=== PATIENT | male | born 1970 | race Asian ===

== ENCOUNTER 2020-10-20 15:18 | Observation (INO) | payer SELFPAY ==
--- NOTE | 2020-10-20 15:54 | ER Document Report ---
ED Medical Screen (RME) - General Stated Complaint: DIZZINESS Time Seen by Provider: 10/20/20 15:25 Information source: Patient Notes: Patient presents with chest pain that started an hour and half prior to arrival. Patient reports some dizziness. Patient describes pain as an achy pressure. Patient reports nausea. Patient did become diaphoretic when episode occurred and does feel lightheaded. Patient denies any cough. Patient reports a history of hypertension, diabetes and CHF. I have greeted and performed a rapid initial assessment of this patient. A comprehensive ED assessment and evaluation of the patient, analysis of test re sults and completion of the medical decision making process will be conducted by additional ED providers. Physical Exam - Respiratory Respiratory status: No respiratory distress - Cardiovascular Rhythm: Regular Heart sounds: S1 appreciated, S2 appreciated Course - Laboratory Results Result Diagrams: 10/20/20 15:50 10/20/20 15:50
--- NOTE | 2020-10-20 15:56 | RADIOLOGY REPORT (SQ) ---
EXAM DESCRIPTION: CHEST SINGLE VIEW IMAGES COMPLETED DATE/TIME: 10/20/2020 3:46 pm REASON FOR STUDY: cp COMPARISON: None. EXAM PARAMETERS: NUMBER OF VIEWS: One view. TECHNIQUE: An AP view of the chest was obtained. RADIATION DOSE: NA LIMITATIONS: None. FINDINGS: LUNGS AND PLEURA: No consolidation, pleural effusion or pneumothorax. MEDIASTINUM AND HILAR STRUCTURES: No mediastinal or hilar contour abnormality. HEART AND VASCULAR STRUCTURES: The cardiac silhouette and pulmonary vasculature are within normal de la cruz its. BONES: No acute findings. HARDWARE: None in the chest. OTHER: No other finding. IMPRESSION: No acute cardiopulmonary process. TECHNICAL DOCUMENTATION: JOB ID: [id number] 2010 [employer]- All Rights Reserved Reading location - IP/workstation name: [email or web address]
[2020-10-20 16:12] LABS: ABSOLUTE BASOPHILS # (AUTO) 0.1 10^3/uL (0.0-0.2); ABSOLUTE EOSINOPHILS # (AUTO) 0.6 10^3/uL (0.0-0.6); ABSOLUTE LYMPHOCYTES (AUTO) 1.6 10^3/uL (0.5-4.7); ABSOLUTE MONOCYTES (AUTO) 0.5 10^3/uL (0.1-1.4); ABSOLUTE NEUT (AUTO) 6.5 10^3/uL (1.7-8.2); EOSINOPHILS % (AUTO) 6.9 % (0-6); HEMATOCRIT 47.7 % (37.9-51.0); HEMOGLOBIN 16.5 g/dL (13.5-17.0); LYMPHOCYTES % (AUTO) 17.6 % (13-45); MEAN CORPUSCULAR HGB CONC 34.6 g/dL (32.0-36.0); MEAN CORPUSCULAR VOLUME 87 fl (80-97); MONOCYTES % (AUTO) 5.3 % (3-13); RED CELL DISTRIBUTION WIDTH 12.8 % (11.5-14.0); SEGMENTED NEUTROPHILS % (AUTO) 69.2 % (42-78); TOTAL CELLS COUNTED % (AUTO) 100 %; WHITE BLOOD COUNT 9.3 10^3/uL (4.0-10.5)
[2020-10-20] MEDS ORDERED: NORMAL SALINE 1000 ML 1,000 ML IV ONE (16:21)
[2020-10-20 16:28] LABS: ALBUMIN 4.7 g/dL (3.5-5.0); ALKALINE PHOSPHATASE 93 U/L (38-126); ANION GAP 12 (5-19); ASPARTATE AMINO TRANSFERASE 24 U/L (17-59); BILIRUBIN,DIRECT 0.3 mg/dL (0.0-0.4); BILIRUBIN,TOTAL 0.8 mg/dL (0.2-1.3); BLOOD UREA NITROGEN 19 mg/dL (7-20); CALCIUM 9.8 mg/dL (8.4-10.2); CARBON DIOXIDE 22 mmol/L (22-30); CHLORIDE 101 mmol/L (98-107); GLUCOSE 312 mg/dL (75-110); POTASSIUM 4.1 mmol/L (3.6-5.0); TOTAL PROTEIN 8.1 g/dL (6.3-8.2)
[2020-10-20 16:32] LABS: PLATELET COUNT 206 10^3/uL (150-450)
[2020-10-20 16:40] LABS: NT PRO BNP 273 pg/mL (<125); TROPONIN I < 0.012 ng/mL
--- NOTE | 2020-10-20 17:44 | ER Document Report ---
Entered by OFELIA PEREZ SCRIBE 10/20/20 2756 Acting as scribe for:AARON MCCLURE MD ED General - General Chief Complaint: Chest Pain Stated Complaint: DIZZINESS Time Seen by Provider: 10/20/20 15:25 Mode of Arrival: Medic Information source: Patient Notes: This 49 year old male patient presents to the emergency department today with complaints of upper chest discomfort that radiates up into his neck, generalized fatigue, diaphoresis, everything looked "ultra ultra bright", and feeling clammy today. He was riding on a golf cart today while his friends played golf when these symptoms began. Patient mentions that in december he was told he had fluid in his lungs and around his heart, and he was sent home on furosemide, carvedilol, and lisinopril. He reports that he had been a smoker but stopped smoking after finding out about CHF. He is not on any blood thinning medications. He does not have pain with breathing. - Related Data Allergies/Adverse Reactions: No Known Allergies Allergy (Verified 10/20/20 16:20) Past Medical History - General Information source: Patient - Social History Smoking Status: Current Some Day Smoker Cigarette use (# per day): Yes Frequency of alcohol use: Occasional Drug Abuse: None Lives with: Family Family History: Reviewed & Not Pertinent - Past Medical History Cardiac Medical History: Reports: Hx Coronary Artery Disease, Hx Hypertension Endocrine Medical History: Reports: Hx Diabetes Mellitus Type 2 Past Surgical History: Reports: Hx Orthopedic Surgery - lumbar discectomy Review of Systems - Review of Systems Constitutional: See HPI, Diaphoresis, Other - fatigue EENT: No symptoms reported Cardiovascular: See HPI, Chest pain Respiratory: No symptoms reported Gastrointestinal: No symptoms reported Genitourinary: No symptoms reported Male Genitourinary: No symptoms reported Musculoskeletal: No symptoms reported Skin: No symptoms reported Hematologic/Lymphatic: No symptoms reported Neurological/Psychological: No symptoms reported -: Yes All other systems reviewed and negative Physical Exam - Vital signs Vitals: Temp Pulse Ox 98.3 F 97 10/20/20 15:35 10/20/20 15:35 - Notes Notes: Physical Exam: General: Alert, appears well. HEENT: Normocephalic. Atraumatic. PERRL. Extraocular movements intact. Oropharynx clear. Neck: Supple. Non-tender. Respiratory: No respiratory distress. Clear and equal breath sounds bilaterally. Cardiovascular: Regular rate and rhythm. Abdominal: Obese. Non-tender. No distension. Normal Bowel Sounds. Back: No gross abnormalities. Extremities: Moves all four extremities. Upper extremities: Normal inspection. Normal ROM. Lower extremities: Normal inspection. No edema. Normal ROM. Neurological: Normal cognition. AAOx4. Normal speech. Psychological: Normal affect. Normal Mood. Skin: Warm. Dry. Normal color. Course - Re-evaluation Re-evalutation: 10/20/20 20:53 The patient's history is very concerning for a myocardial infarction back in December of this year. The EKG shows Q waves in the inferior leads consistent with an inferior wall DC. There are also anterior cues suggesting prior anterior wall DC. The patient's history today is very suggestive of an anginal episode. The CT scan shows a large thickened left ventricle. He will be admitted by the hospitalist service for further evaluation. - Vital Signs Vital signs: Temp Pulse Resp BP Pulse Ox 98.3 F 14 107/84 99 10/20/20 15:35 10/20/20 19:37 10/20/20 19:37 10/20/20 19:37 - Laboratory Results Result Diagrams: 10/20/20 15:50 10/20/20 15:50 Laboratory Results Interpreted: 10/20/20 10/20/20 10/20/20 15:50 15:50 15:50 Eos % (Auto) 6.9 H D-Dimer Sodium 135.4 L Creatinine 1.72 H Est GFR ( Amer) 51 L Est GFR (MDRD) Non-Af 42 L Glucose 312 H Hemoglobin A1c % NT-Pro-B Natriuret Pep 273 H Urine Protein Urine Glucose (UA) 10/20/20 10/20/20 10/20/20 15:50 15:50 17:41 Eos % (Auto) D-Dimer 2.11 H Sodium Creatinine Est GFR ( Amer) Est GFR (MDRD) Non-Af Glucose Hemoglobin A1c % 11.7 H NT-Pro-B Natriuret Pep Urine Protein 30 H Urine Glucose (UA) >=500 H Critical Laboratory Results Reviewed: Yes Attending or Supervising Physician who Reviewed Labs: Dr. Mcclure - Radiology Results Critical Radiology Results Reviewed: No Critical Results - Chest x-ray does not show acute cardiopulmonary abnormalities. CTA chest does not show pulmonary embolus. There is borderline aneurysmal 30 mm a sending aorta without di ssection. There is a large thickened left ventricle. - EKG Interpretation by Me EKG shows normal: Sinus rhythm, [place], Intervals, ST-T Waves. abnormal: QRS Comp lexes - Old inferior infarct, possible old anterior infarct. Rate: Tachycardia - 101 P Waves: LAE When compared to previous EKG there are: Previous EKG unavailable - Consults Dr. Jacome Time consulted: 20:40 Consulted provider: will come to ER Discharge - Discharge Clinical Impression: Chest pain due to coronary artery disease, Poorly controlled diabetes mellitus, Elevated d-dimer, Left ventricular hypertrophy Condition: Stable Disposition: ADMITTED OBSERVATION Admitting Provider: Ay[facility] Unit Admitted: Telemetry I personally performed the services described in the documentation, reviewed and edited the documentation which was dictated to the scribe in my presence, and it accurately records my words and actions.
[2020-10-20 18:03] LABS: APPEARANCE,URINE SLIGHTLY-CLOUDY; BILIRUBIN,URINE NEGATIVE (NEGATIVE); COLOR,URINE YELLOW; GLUCOSE, URINE >=500 mg/dL (NEGATIVE); KETONES,URINE NEGATIVE (NEGATIVE); LEUKOCYTE ESTERASE,URINE NEGATIVE (NEGATIVE); NITRITE,URINE NEGATIVE (NEGATIVE); PROTEIN,URINE 30 mg/dL (NEGATIVE); URINE SPECIFIC GRAVITY 1.011; UROBILINOGEN,URINE NEGATIVE mg/dL (<2.0)
--- NOTE | 2020-10-20 20:35 | RADIOLOGY REPORT (SQ) ---
EXAM DESCRIPTION: CT CHEST ANGIOGRAPHY WITHOUT THEN WITH IV CONTRAST COMPLETED DATE/TME: 10/20/2020 19:59 CLINICAL HISTORY: 49 years, Male, Elevated D-dimer, chest pain COMPARISON: Chest x-ray 10/20/2020 TECHNIQUE: 70 mL Omnipaque 300 contrast. MIP reconstruction. Images stored on PACS. All CT scanners at this facility use dose modulation, iterative reconstruction, and/or weight based dosing when appropriate to reduce radiation dose to as low as reasonably achievable (ALARA). FINDINGS: Normal size 26 mm main pulmonary artery. No evidence for pulmonary embolus. Borderline aneurysmal, 39 mm ascending aorta. No dissection. Nonenlarged left atrium mildly compressed by the ascending aorta.. A large thickened left ventricle. Small mediastinal lymph nodes. No suspicious mediastinal adenopathy. No evidence for pericardial effusion. No acute lung or pleural abnormalities. Limited images of the upper abdomen without acute findings. IMPRESSION: 1. There is for pulmonary embolus. 2. Borderline fatty 9 mm aneurysmal ascending aorta. No dissection. Thickened left ventricle wall. 3. No acute findings. TECHNICAL DOCUMENTATION: Quality ID # 436: Final reports with documentation of one or more dose reduction techniques (e.g., Automated exposure control, adjustment of the mA and/or kV according to patient size, use of iterative reconstruction technique) copyright 2011 [employer]- All Rights Reserved
[2020-10-20] MEDS ORDERED: ASPIRIN 81 MG TABLET, CHEWABLE PO ONE (20:55)
[2020-10-20 21:05] LABS: INTERNATIONAL RATION (INR) 0.83; PROTHROMBIN TIME 11.6 SEC (11.4-15.4)
[2020-10-20] MEDS ORDERED: DEXTROSE 40% GEL 15 GM TUBE PO PRN ×2 (21:56)
[2020-10-20] MEDS ORDERED: GLUCAGON,HUMAN RECOMB 1 MG INJ IM PRN (21:56)
[2020-10-20] MEDS ORDERED: DEXTROSE 50%-WATER 25 GM/50 ML DISP.SYRIN IV PRN ×2 (21:56)
[2020-10-20] MEDS ORDERED: INSULIN GLARGINE,HUM.REC.ANLOG 1,000 UNIT/10 ML VIAL (PYX) SUBCUT ONE (23:26)
[2020-10-20] MEDS: CARVEDILOL 6.25 MG TABLET PO SCH (23:34)
[2020-10-20] MEDS: INSULIN GLARGINE,HUM.REC.ANLOG 1,000 UNIT/10 ML VIAL SUBCUT SCH (23:34)
[2020-10-20] MEDS: INSULIN REG, HUMAN 100 UNIT/ML 3 ML VIAL (PYX) SUBCUT SCH (23:44)
--- NOTE | 2020-10-21 02:36 | PDOC H&P ---
History of Present Illness Admission Date/PCP: 10/20/20 21:17 Patient complains of: Chest pain History of Present Illness: MAY SINGH is a 49 year old male Patient has history of coronary artery disease. He had nuclear medicine cardiac stress test about 2 years ago. 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 Cardiac catheterization was not recommended at that time. He was at the [employer] course with his friends this afternoon. He was mostly riding the golf cart. He started feeling poorly. He started sweating, became lighthea ded, nauseated. He developed chest pressure radiating towards left shoulder. He felt he is going to pass out. The symptoms lasted for almost an hour. Eventually came to the emergency department. His symptoms resolved. The chest pressure was quite intense. He never experienced anything similar. He had some shortness of breath at the same time as well. Eventually the symptoms resolved by itself. Ever since then he is feeling fine. When I arrived to see him he appeared to be comfortable without any distress. Past Medical History Cardiac Medical History: Reports: Coronary Artery Disease, Hypertension Pulmonary Medical History: Denies: None Endocrine Medical History: Reports: Diabetes Mellitus Type 2 Renal/ Medical History: Reports: None Malignancy Medical History: Reports: None GI Medical History: Reports: None Musculoskeltal Medical History: Reports: None Skin Medical History: Reports: None Psychiatric Medical History: Denies: Depression Infectious Medical History: Reports: None Past Surgical History Past Surgical History: Reports: Orthopedic Surgery - lumbar discectomy Social History Lives with: Family Smoking Status: Former Smoker Frequency of Alcohol Use: Occasional Drugs: None Hx Prescription Drug Abuse: No Family History Family History: Other - He does not know his family history, he is adopted. Parental Family History Reviewed: No - Adopted Children Family History Reviewed: No Sibling(s) Family History Reviewed.: No Medication/Allergy Home Medications: Lisinopril [Prinivil 10 mg Tablet] 10 mg PO DAILY 10/20/20 Allergies/Adverse Reactions: No Known Allergies Allergy (Verified 10/20/20 16:20) Review of Systems Constitutional: PRESENT: as per HPI. ABSENT: chills, fever(s), headache(s), weight gain, weight loss Eyes: ABSENT: visual disturbances Ears: ABSENT: hearing changes Cardiovascular: PRESENT: chest pain, dyspnea on exertion Respiratory: ABSENT: cough, hemoptysis Gastrointestinal: ABSENT: abdominal pain, constipation, diarrhea, hematemesis, hematochezia, nausea, vomiting Genitourinary: ABSENT: dysuria, hematuria Musculoskeletal: ABSENT: joint swelling Integumentary: ABSENT: rash, wounds Neurological: ABSENT: abnormal gait, abnormal speech, confusion, dizziness, focal weakness, syncope Physical Exam Vital Signs: Temp Pulse Resp BP Pulse Ox 98.2 F 103 H 16 106/72 96 10/20/20 23:21 10/20/20 23:21 10/20/20 23:21 10/20/20 23:21 10/20/20 23:21 Intake & Output 10/19/20 10/20/20 10/21/20 06:59 06:59 06:59 Intake Total 1000 Balance 1000 Weight 106.7 kg General appearance: PRESENT: no acute distress Head exam: PRESENT: atraumatic Eye exam: PRESENT: conjunctiva pink, EOMI, PERRLA. ABSENT: scleral icterus Ear exam: PRESENT: normal external ear exam Neck exam: ABSENT: carotid bruit, JVD, lymphadenopathy, thyromegaly Respiratory exam: PRESENT: clear to auscultation luis. ABSENT: rales, rhonchi, wheezes Cardiovascular exam: PRESENT: RRR. ABSENT: diastolic murmur, rubs, systolic murmur Pulses: PRESENT: normal dorsalis pedis pul Vascular exam: PRESENT: normal capillary refill GI/Abdominal exam: PRESENT: normal bowel sounds, soft. ABSENT: distended, guarding, mass, organolmegaly, rebound, tenderness Extremities exam: PRESENT: full ROM. ABSENT: calf tenderness, clubbing, pedal edema Neurological exam: PRESENT: alert, awake, oriented to person, oriented to place, oriented to time, oriented to situation, CN II-XII grossly intact. ABSENT: motor sensory deficit Skin exam: PRESENT: dry, intact, warm. ABSENT: cyanosis, rash Results Laboratory Results: 10/20/20 15:50 10/20/20 15:50 10/20/20 10/20/20 10/20/20 15:50 15:50 17:41 WBC 9.3 RBC 5.50 Hgb 16.5 Hct 47.7 MCV 87 MCH 30.0 MCHC 34.6 RDW 12.8 Plt Count 206 Seg Neutrophils % 69.2 Sodium 135.4 L Potassium 4.1 Chloride 101 Carbon Dioxide 22 Anion Gap 12 BUN 19 Creatinine 1.72 H Est GFR ( Amer) 51 L Glucose 312 H Calcium 9.8 Magnesium 2.1 Total Bilirubin 0.8 AST 24 Alkaline Phosphatase 93 Total Protein 8.1 Albumin 4.7 Urine Color YELLOW Urine Appearance SLIGHTLY-CLOUDY Urine pH 5.0 Ur Specific [place] 1.011 Urine Protein 30 H Urine Glucose (UA) >=500 H Urine Ketones NEGATIVE Urine Blood NEGATIVE Urine Nitrite NEGATIVE Ur Leukocyte Esterase NEGATIVE Urine WBC (Auto) 1 Urine RBC (Auto) 0 10/20/20 10/20/20 10/20/20 15:50 15:50 18:01 Creatine Kinase 101 Troponin I < 0.012 < 0.012 NT-Pro-B Natriuret Pep 273 H 10/20/20 23:47 Creatine Kinase Troponin I < 0.012 NT-Pro-B Natriuret Pep Impressions: Chest X-Ray 10/20/20 15:35 IMPRESSION: No acute cardiopulmonary process. Chest/Abdomen CTA 10/20/20 18:53 IMPRESSION: 1. There is for pulmonary embolus. 2. Borderline fatty 9 mm aneurysmal ascending aorta. No dissection. Thickened left ventricle wall. 3. No acute findings. TECHNICAL DOCUMENTATION: Quality ID # 436: Final reports with documentation of one or more dose reduction techniques (e.g., Automated exposure control, adjustment of the mA and/or kV according to patient size, use of iterative reconstruction technique) copyright 2011 [employer]- All Rights Reserved Assessment and Plan - Diagnosis (1) Chest pain due to coronary artery disease Is this a current diagnosis for this admission?: Yes Plan: No sign of ongoing cardiac ischemia. The chest painchest tightness was most likely angina. Other etiology cannot be entirely excluded. He is stable. He is going to be on playground monitor. Repeat cardiac enzymes. Continue daily aspirin. Fasting lipid panel, start statin drug in case LDL is greater than 70. Continue beta-andrew. Cardiology consultation was requested. Echocardiogram. (2) Hypertension Qualifiers: Hypertension type: essential hypertension Qualified Code(s): I10 - Essential (primary) hypertension Is this a current diagnosis for this admission?: Yes Plan: He appears to be somewhat volume depleted. He received fluid bolus in the emergency department. I am going to hold lisinopril and furosemide. It is somewhat unclear why is he taking furosemide. (3) Diabetes Qualifiers: Diabetes mellitus type: type 2 Diabetes mellitus longitudinal float operator insulin use: without longitudinal float operator use Diabetes mellitus complication status: with hyperglycemia Qualified Code(s): E11.65 - Type 2 diabetes mellitus with hyperglycemia Is this a current diagnosis for this admission?: Yes Plan: He used to be on Metformin which was discontinued several months ago. He has moderate hyperglycemia. I started him on Lantus insulin and correction dose insulin. His hemoglobin A1c is 11.7. I am not quite sure his diabetes can be controlled with oral agent alone. Monitor blood sugar and prior to discharge we will determine what will be the best approach for his diabetes. - Plan Summary Summary: The patient with previous history of coronary artery disease presented with anginal equivalent symptoms. He has no sign of ongoing cardiac ischemia and he is comfortable now. He was placed in observation for cardiac evaluation. He has uncontrolled type 2 diabetes. - Time Time Spent with patient: 35 or more minutes Medications reviewed and adjusted accordingly: Yes Anticipated Discharge Disposition: Home, Self Care Anticipated Discharge Timeframe: within 24 hours
[2020-10-21 06:36] LABS: ABSOLUTE BASOPHILS # (AUTO) 0.1 10^3/uL (0.0-0.2); ABSOLUTE EOSINOPHILS # (AUTO) 0.7 10^3/uL (0.0-0.6); ABSOLUTE LYMPHOCYTES (AUTO) 1.4 10^3/uL (0.5-4.7); ABSOLUTE MONOCYTES (AUTO) 0.4 10^3/uL (0.1-1.4); ABSOLUTE NEUT (AUTO) 3.6 10^3/uL (1.7-8.2); BASOPHILS % (AUTO) 1.2 % (0-2); EOSINOPHILS % (AUTO) 10.8 % (0-6); HEMATOCRIT 40.9 % (37.9-51.0); LYMPHOCYTES % (AUTO) 22.8 % (13-45); MEAN CORPUSCULAR HEMOGLOBIN 29.5 pg (27.0-33.4); MEAN CORPUSCULAR HGB CONC 33.7 g/dL (32.0-36.0); MEAN CORPUSCULAR VOLUME 88 fl (80-97); MONOCYTES % (AUTO) 6.6 % (3-13); PLATELET COUNT 244 10^3/uL (150-450); RED BLOOD COUNT 4.67 10^6/uL (4.35-5.55); RED CELL DISTRIBUTION WIDTH 12.6 % (11.5-14.0); SEGMENTED NEUTROPHILS % (AUTO) 58.6 % (42-78); TOTAL CELLS COUNTED % (AUTO) 100 %; WHITE BLOOD COUNT 6.2 10^3/uL (4.0-10.5)
[2020-10-21 06:43] LABS: HEMOGLOBIN 13.8 g/dL (13.5-17.0)
[2020-10-21 06:57] LABS: ALBUMIN 3.5 g/dL (3.5-5.0); ALKALINE PHOSPHATASE 77 U/L (38-126); ANION GAP 6 (5-19); ASPARTATE AMINO TRANSFERASE 20 U/L (17-59); BILIRUBIN,DIRECT 0.2 mg/dL (0.0-0.4); BILIRUBIN,TOTAL 0.5 mg/dL (0.2-1.3); BLOOD UREA NITROGEN 21 mg/dL (7-20); CALCIUM 9.4 mg/dL (8.4-10.2); CARBON DIOXIDE 24 mmol/L (22-30); CHLORIDE 105 mmol/L (98-107); CHOLESTEROL 203.63 mg/dL (0-200); GLUCOSE 259 mg/dL (75-110); POTASSIUM 4.3 mmol/L (3.6-5.0); TOTAL PROTEIN 6.1 g/dL (6.3-8.2); TRIGLYCERIDES 201 mg/dL (<150)
[2020-10-21 07:08] LABS: DIRECT LDL 157 mg/dL (<100)
[2020-10-21 07:11] LABS: VLDL CHOLESTEROL 40.2 mg/dL (10-31)
--- NOTE | 2020-10-21 08:39 | PDOC CONSULTATION ---
Consultation Consult Date: 10/21/20 Attending physician:: AJITH ACKERMAN Provider Consulted: ARELIS BLAKE Consult reason:: Chest pain History of Present Illness Admission Date/PCP: 10/20/20 21:17 History of Present Illness: MAY SINGH is a 49 year old male with history of hypertension, hyperlipidemia, type 2 diabetes, coronary artery disease status post MO based on the results of a nuclear stress test done approximately 3 years ago at [facility], heart failure diagnosed by his primary care provider in December 2019 when he was found to have pulmonary edema on chest x- ray, ex-smoker who quit 6 months ago and unknown family history of premature coronary artery disease as he is adopted who is consulted to our service for evaluation of chest pain. After the patient was told the results of his nuclear stress test approximately 3 years ago he was unable to follow-up with cardiology with any further work-up and has not been seen by any hot cell technician not even after his episode of heart failure in December 2019 due to reasons beyond his control. He had been doing well until yesterday when, while talking to friends [place] the [place], he developed a very severe substernal chest pain that he described as a tightness, without radiation, lasting for at least 2 to 3 hours, associated with shortness of breath, diaphoresis, nausea and lightheadedness as well as palpitations but no syncope or presyncope. Since admission he has r emained hemodynamically stable and without recurrence of chest pain. He ruled out for MO with 3 sets of cardiac troponins that are negative. He has no new complaints this morning and feels well. Physical exam on 10/21/2020: GENERAL: Pleasant and conversational. Oriented x3 with normal mood. Not in acute distress. Well groomed and well developed. HEENT: Normocephalic, atraumatic. Pupils equal. Sclerae anicteric. Oropharynx moist. NECK: No JVD. No carotid bruits. LUNGS: Clear to auscultation bilaterally. Normal respiratory effort without the use of accessory muscles or intercostal retractions. CARDIOVASCULAR: Regular rate and rhythm, normal S1 and S2 without murmurs, rubs, or gallops. PMI not displaced. ABDOMEN: No masses or tenderness to palpation. No bruit. No splenomegaly or hepatomegaly. No abdominal aorta bruit noted. EXTREMITIES: No edema, no cyanosis, no clubbing. +2 pulses femoral and pedal pulses bilaterally. SKIN: No lesions or rashes. MUSCULOSKELETAL: No chest tenderness to palpation. NEUROLOGIC: Nonfocal. No gross sensory or motor deficits bilateral upper or lower extremities. Past Medical History Cardiac Medical History: Reports: Coronary Artery Disease, Hypertension Pulmonary Medical History: Denies: None Endocrine Medical History: Reports: Diabetes Mellitus Type 2 Renal/ Medical History: Reports: None Malignancy Medical History: Reports: None GI Medical History: Reports: None Musculoskeltal Medical History: Reports: None Skin Medical History: Reports: None Psychiatric Medical History: Denies: Depression Infectious Medical History: Reports: None Past Surgical History Past Surgical History: Reports: Orthopedic Surgery - lumbar discectomy Social History Lives with: Family Smoking Status: Former Smoker Frequency of Alcohol Use: Occasional Drugs: None Hx Prescription Drug Abuse: No Family History Family History: Other - He does not know his family history, he is adopted. Parental Family History Reviewed: Yes Children Family History Reviewed: Yes Sibling(s) Family History Reviewed.: Yes Medication/Allergy Home Medications: Lisinopril [Prinivil 10 mg Tablet] 10 mg PO DAILY 10/20/20 Allergies/Adverse Reactions: No Known Allergies Allergy (Verified 10/20/20 16:20) Physical Exam Vital Signs: Temp Pulse Resp BP Pulse Ox 98.1 F 82 16 114/62 98 10/21/20 03:48 10/21/20 06:56 10/21/20 03:48 10/21/20 03:48 10/21/20 03:48 Intake & Output 10/20/20 10/21/20 10/22/20 06:59 06:59 06:59 Intake Total 1000 Output Total 800 Balance 200 Weight 106.7 kg Results Laboratory Results: 10/21/20 06:10 10/20/20 10/20/20 10/20/20 15:50 15:50 17:41 WBC 9.3 RBC 5.50 Hgb 16.5 Hct 47.7 MCV 87 MCH 30.0 MCHC 34.6 RDW 12.8 Plt Count 206 Seg Neutrophils % 69.2 Sodium 135.4 L Potassium 4.1 Chloride 101 Carbon Dioxide 22 Anion Gap 12 BUN 19 Creatinine 1.72 H Est GFR ( Amer) 51 L Glucose 312 H Calcium 9.8 Magnesium 2.1 Total Bilirubin 0.8 AST 24 Alkaline Phosphatase 93 Total Protein 8.1 Albumin 4.7 Urine Color YELLOW Urine Appearance SLIGHTLY-CLOUDY Urine pH 5.0 Ur Specific [place] 1.011 Urine Protein 30 H Urine Glucose (UA) >=500 H Urine Ketones NEGATIVE Urine Blood NEGATIVE Urine Nitrite NEGATIVE Ur Leukocyte Esterase NEGATIVE Urine WBC (Auto) 1 Urine RBC (Auto) 0 10/21/20 06:10 WBC 6.2 RBC 4.67 Hgb 13.8 D Hct 40.9 MCV 88 MCH 29.5 MCHC 33.7 RDW 12.6 Plt Count 244 Seg Neutrophils % 58.6 Sodium Potassium Chloride Carbon Dioxide Anion Gap BUN Creatinine Est GFR ( Amer) Glucose Calcium Magnesium Total Bilirubin AST Alkaline Phosphatase Total Protein Albumin Urine Color Urine Appearance Urine pH Ur Specific [place] Urine Protein Urine Glucose (UA) Urine Ketones Urine Blood Urine Nitrite Ur Leukocyte Esterase Urine WBC (Auto) Urine RBC (Auto) 10/20/20 10/20/20 10/20/20 15:50 15:50 18:01 Creatine Kinase 101 Troponin I < 0.012 < 0.012 NT-Pro-B Natriuret Pep 273 H 10/20/20 10/21/20 23:47 06:10 Creatine Kinase Troponin I < 0.012 < 0.012 NT-Pro-B Natriuret Pep Impressions: Chest X-Ray 10/20/20 15:35 IMPRESSION: No acute cardiopulmonary process. Chest/Abdomen CTA 10/20/20 18:53 IMPRESSION: 1. There is for pulmonary embolus. 2. Borderline fatty 9 mm aneurysmal ascending aorta. No dissection. Thickened left ventricle wall. 3. No acute findings. TECHNICAL DOCUMENTATION: Quality ID # [id number]: Final reports with documentation of one or more dose reduction techniques (e.g., Automated exposure control, adjustment of the mA and/or kV according to patient size, use of iterative reconstruction technique) copyright 2011 [facility]- All Rights Reserved 10/21/20 06:10 10/21/20 06:10 MCV 88 fl (80-97) 10/21/20 06:10 MCH 29.5 pg (27.0-33.4) 10/21/20 06:10 MCHC 33.7 g/dL (32.0-36.0) 10/21/20 06:10 RDW 12.6 % (11.5-14.0) 10/21/20 06:10 Seg Neutrophils % 58.6 % (42-78) 10/21/20 06:10 Chloride 105 mmol/L (98-107) 10/21/20 06:10 Carbon Dioxide 24 mmol/L (22-30) 10/21/20 06:10 Anion Gap 6 (5-19) 10/21/20 06:10 Est GFR ( Amer) > 60 (>60) 10/21/20 06:10 Glucose 259 mg/dL (75-110) H 10/21/20 06:10 Calcium 9.4 mg/dL (8.4-10.2) 10/21/20 06:10 Magnesium 2.0 mg/dL (1.6-2.3) 10/21/20 06:10 Total Bilirubin 0.5 mg/dL (0.2-1.3) 10/21/20 06:10 AST 20 U/L (17-59) 10/21/20 06:10 Alkaline Phosphatase 77 U/L (38-126) 10/21/20 06:10 Total Protein 6.1 g/dL (6.3-8.2) L 10/21/20 06:10 Albumin 3.5 g/dL (3.5-5.0) 10/21/20 06:10 Triglycerides 201 mg/dL (<150) H 10/21/20 06:10 Cholesterol 203.63 mg/dL (0-200) H 10/21/20 06:10 LDL Cholesterol Direct 157 mg/dL (<100) H 10/21/20 06:10 VLDL Cholesterol 40.2 mg/dL (10-31) H 10/21/20 06:10 HDL Cholesterol 36 mg/dL (>40) L 10/21/20 06:10 Urine Color YELLOW 10/20/20 17:41 Urine Appearance SLIGHTLY-CLOUDY 10/20/20 17:41 Urine pH 5.0 (5.0-9.0) 10/20/20 17:41 Ur Specific [place] 1.011 10/20/20 17:41 Urine Protein 30 mg/dL (NEGATIVE) H 10/20/20 17:41 Urine Glucose (UA) >=500 mg/dL (NEGATIVE) H 10/20/20 17:41 Urine Ketones NEGATIVE mg/dL (NEGATIVE) 10/20/20 17:41 Urine Blood NEGATIVE (NEGATIVE) 10/20/20 17:41 Urine Nitrite NEGATIVE (NEGATIVE) 10/20/20 17:41 Ur Leukocyte Esterase NEGATIVE (NEGATIVE) 10/20/20 17:41 Urine WBC (Auto) 1 /HPF 10/20/20 17:41 Urine RBC (Auto) 0 /HPF 10/20/20 17:41 10/20/20 10/20/20 10/20/20 15:50 15:50 18:01 Creatine Kinase 101 Troponin I < 0.012 < 0.012 NT-Pro-B Natriuret Pep 273 H 10/20/20 10/21/20 23:47 06:10 Creatine Kinase Troponin I < 0.012 < 0.012 NT-Pro-B Natriuret Pep Current Medication List Generic Name Dose Route Start Last Admin Trade Name Freq PRN Reason Stop Dose Admin Aspirin 81 mg 10/21/20 10:00 Aspirin 81 Mg Tablet, Chewable PO 11/20/20 09:59 DAILY ALEJANDRO Carvedilol 6.25 mg 10/20/20 22:00 10/20/20 23:34 Carvedilol 6.25 Mg Tablet PO 11/19/20 21:59 6.25 mg Q12 ALEJANDRO Administration Dextrose 12.5 gm 10/20/20 21:56 Dextrose 50%-Water 25 Gm/50 Ml Disp.Syrin IV 11/19/20 21:55 PRN PRN FOR BG 50-69 IN ALERT PATIENT Protocol Dextrose 25 gm 10/20/20 21:56 Dextrose 50%-Water 25 Gm/50 Ml Disp.Syrin IV 11/19/20 21:55 PRN PRN PER PROTOCOL Protocol Glucagon 1 mg 10/20/20 21:56 Glucagon,Human Recomb 1 Mg Inj IM 11/19/20 21:55 PRN PRN Evaluate for BG < 70 Protocol Glucose 15 gm 10/20/20 21:56 Dextrose 40% Gel 15 Gm Tube PO 11/19/20 21:55 PRN PRN FOR BG 50-69 IN ALERT PATIENT Protocol Glucose 30 gm 10/20/20 21:56 Dextrose 40% Gel 15 Gm Tube PO 11/19/20 21:55 PRN PRN FOR BG < 50 IN ALERT PATIENT Protocol Influenza Virus Vaccine Quadrival 0.5 ml 10/22/20 08:00 Influenza Quad (6mos+) Vac 0.5 Ml Syr IM 10/22/20 08:01 .ONCE ONE Insulin Glargine 20 unit 10/20/20 22:00 10/20/20 23:34 Insulin Glargine,Hum.Rec.Anlog 1,000 Unit/10 Ml Vial SUBCUT 11/19/20 21:59 20 unit QHS ALEJANDRO Administration Insulin Human Regular 0 - 12 unit 10/20/20 22:00 10/20/20 23:44 Insulin Reg, Human 100 Unit/Ml 3 Ml Vial (Pyx) SUBCUT 11/19/20 21:59 10 unit ACHS [facility] Administration Protocol Sodium Chloride 2.5 ml 10/20/20 22:00 10/21/20 05:35 Normal Saline Flush 2.5 Ml Disp.Syrin IV 11/19/20 21:59 Not Given Q8 [facility] Discontinued Medications Generic Name Dose Route Start Last Admin Trade Name Freq PRN Reason Stop Dose Admin Aspirin 324 mg 10/20/20 20:55 10/20/20 21:25 Aspirin 81 Mg Tablet, Chewable PO 10/20/20 20:56 324 mg NOW ONE Administration Sodium Chloride 1,000 mls @ 0 mls/hr 10/20/20 16:21 10/20/20 18:05 Nacl 0.9% 1000 Ml Iv Soln IV 10/20/20 16:22 Infused BOLUS ONE Infusion Wide Open Insulin Glargine Confirm 10/20/20 23:26 10/20/20 23:35 Insulin Glargine,Hum.Rec.Anlog 1,000 Unit/10 Ml Vial (Pyx) Administered 10/20/20 23:27 Not Given Dose 1 unit [address] .[facility] ONE Assessment & Plan - Diagnosis (1) Chest pain Qualifiers: Chest pain type: unspecified Qualified Code(s): R07.9 - Chest pain, unspecified Is this a current diagnosis for this admission?: Yes Plan: 49-year-old male with multiple cardiac risk factors for coronary artery disease and apparent history of MO based on an abnormal nuclear stress test 3 years ago at [facility] who is admitted for further evaluation of chest pain. Fortunately enough, the patient ruled out for acute MO with 3 sets of negative cardiac enzymes and his chest pain has not recurred. Unfortunately he was unable to follow-up with any hot cell technician and has not undergone further work-up since initial diagnosis approximately 3 years ago. He is currently not on GDMT. Given his history, chest pain and cardiac risk factors he will need further risk stratification with either left heart catheterization or nuclear stress test, this will depend on the results of his echocardiogram. Recommendations: -Continue with current doses of Coreg. -Add Lipitor 80 mg daily. -Sublingual nitroglycerin as needed. -Agree with echocardiogram today. -If ejection fraction on echocardiography is normal we will then proceed with nuclear stress test on Friday otherwise he would need to be transferred to [facility] for invasive assessment with left heart catheterization. (2) Heart failure Qualifiers: Heart failure type: unspecified Is this a current diagnosis for this admission?: Yes Plan: It is unknown whether the patient has systolic or diastolic heart failure. His initial diagnosis apparently occurred in December 2019 when he sought medical attention with his primary care provider thinking that he had a COVID-19 infection but was found to apparently have pulmonary edema on chest x-ray. Unfortunately he was unable to get further cardiovascular work-up. He denies heart failure symptoms and appears to be euvolemic on exam. Recommendations: -Echocardiogram today. -Start low-dose ARB of your choice. -Further recommendations pending results of echocardiography. (3) Hypertension Qualifiers: Hypertension type: essential hypertension Qualified Code(s): I10 - Marika al (primary) hypertension Is this a current diagnosis for this admission?: Yes Plan: His blood pressure is at goal. Will defer further management to hospitalist team. (4) Hyperlipidemia associated with type 2 diabetes mellitus Is this a current diagnosis for this admission?: Yes Plan: His most recent LDL is above goal at 157. Given his cardiac history and the presence of diabetes his LDL goal is 70 or below. Recommendations: -Start Lipitor 80 mg nightly. -Low-cholesterol/low-fat diet. -Check LFTs today. -Recheck LFTs in 6 weeks. (5) Diabetes mellitus Qualifiers: Diabetes mellitus type: type 2 Is this a current diagnosis for this admission?: Yes Plan: I will defer further management to hospitalist team.
[2020-10-21] MEDS: INSULIN REG, HUMAN 100 UNIT/ML 3 ML VIAL (PYX) SUBCUT SCH ×4 (10:18→22:10)
[2020-10-21] MEDS: CARVEDILOL 6.25 MG TABLET PO SCH ×2 (10:21→21:37)
[2020-10-21] MEDS: ASPIRIN 81 MG TABLET, CHEWABLE PO SCH (10:21)
--- NOTE | 2020-10-21 14:53 | EKG REPORT ---
SEVERITY:- ABNORMAL ECG - SINUS RHYTHM FIRST DEGREE AV BLOCK INFERIOR INFARCT, AGE INDETERMINATE CONSIDER ANTERIOR INFARCT LVH : Confirmed by: Kenny Mora 21-Oct-2020 14:53:27
--- NOTE | 2020-10-21 14:54 | EKG REPORT ---
SEVERITY:- ABNORMAL ECG - SINUS TACHYCARDIA PROBABLE LEFT ATRIAL ABNORMALITY INFERIOR INFARCT, AGE INDETERMINATE ANTERIOR INFARCT, AGE INDETERMINATE LVH : Confirmed by: Kenny Mora 21-Oct-2020 14:53:56
[2020-10-21] MEDS ORDERED: NITROGLYCERIN 0.4 MG/TAB 25 TAB/BOTTLE SL PRN (16:52)
--- NOTE | 2020-10-21 17:00 | PDOC PROGRESS REPORT ---
Subjective Date:: 10/21/20 Subjective:: MAY SINGH is a 49 year old male Patient has history of coronary artery disease. He had nuclear medicine cardiac stress test about 2 years ago. 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 Cardiac catheterization was not recommended at that time. [place] [employer] [place] with his friends this afternoon. He was mostly riding the golf cart. He started feeling poorly. He started sweating, became lightheaded, nauseated. He developed chest pressure radiating towards left shoulder. He felt he is going to pass out. The symptoms lasted for almost an hour. Eventually came to the emergency department. His symptoms resolved. The chest pressure was quite intense. He never experienced anything similar. He had some shortness of breath at the same time as well. Eventually the symptoms resolved by itself. Ever since then he is feeling fine. When I arrived to see him he appeared to be comfortable without any distress. D1 hospital stay Patient was seen and examined at bedside. He denied any chest pain, SOB, palpitations. He admitted to the nurse that he was not able to buy his medication because he could not afford it. I spoke to Dr. Veloz who said depending on what the echo shows he would likely need nuclear stress or be vargas sferred for a cath. I have changed the echo order to stat. Reason For Visit: CHEST PAIN DUE TO CORONARY ARTERY DISEASE,POORLY Physical Exam Vital Signs: Temp Pulse Resp BP Pulse Ox 98.0 F 97 18 158/90 H 96 10/21/20 13:10 10/21/20 14:00 10/21/20 13:10 10/21/20 13:10 10/21/20 13:10 Intake & Output 10/20/20 10/21/20 10/22/20 06:59 06:59 06:59 Intake Total 1000 Output Total 800 Balance 200 Weight 106.7 kg General appearance: PRESENT: no acute distress, cooperative Head exam: PRESENT: atraumatic, normocephalic Eye exam: PRESENT: EOMI Mouth exam: PRESENT: moist Neck exam: PRESENT: full ROM Respiratory exam: PRESENT: rales, symmetrical, unlabored Cardiovascular exam: PRESENT: RRR, +S1, +S2 Pulses: PRESENT: +2 pedal pulses bilateral GI/Abdominal exam: PRESENT: normal bowel sounds, soft. ABSENT: rebound, tenderness Extremities exam: PRESENT: full ROM Musculoskeletal exam: PRESENT: full ROM Neurological exam: PRESENT: alert, awake, oriented to person, oriented to place, oriented to time, oriented to situation Psychiatric exam: PRESENT: normal mood Skin exam: PRESENT: normal color Results Laboratory Results: 10/21/20 06:10 10/21/20 06:10 10/20/20 10/20/20 10/20/20 15:50 15:50 17:41 WBC 9.3 RBC 5.50 Hgb 16.5 Hct 47.7 MCV 87 MCH 30.0 MCHC 34.6 RDW 12.8 Plt Count 206 Seg Neutrophils % 69.2 Sodium 135.4 L Potassium 4.1 Chloride 101 Carbon Dioxide 22 Anion Gap 12 BUN 19 Creatinine 1.72 H Est GFR ( Amer) 51 L Glucose 312 H Calcium 9.8 Magnesium 2.1 Total Bilirubin 0.8 AST 24 Alkaline Phosphatase 93 Total Protein 8.1 Albumin 4.7 Triglycerides Cholesterol LDL Cholesterol Direct VLDL Cholesterol HDL Cholesterol TSH Urine Color YELLOW Urine Appearance SLIGHTLY-CLOUDY Urine pH 5.0 Ur Specific [place] 1.011 Urine Protein 30 H Urine Glucose (UA) >=500 H Urine Ketones NEGATIVE Urine Blood NEGATIVE Urine Nitrite NEGATIVE Ur Leukocyte Esterase NEGATIVE Urine WBC (Auto) 1 Urine RBC (Auto) 0 10/21/20 10/21/20 10/21/20 06:10 06:10 06:10 WBC 6.2 RBC 4.67 Hgb 13.8 D Hct 40.9 MCV 88 MCH 29.5 MCHC 33.7 RDW 12.6 Plt Count 244 Seg Neutrophils % 58.6 Sodium 134.6 L Potassium 4.3 Chloride 105 Carbon Dioxide 24 Anion Gap 6 BUN 21 H Creatinine 0.78 Est GFR ( Amer) > 60 Glucose 259 H Calcium 9.4 Magnesium 2.0 Total Bilirubin 0.5 AST 20 Alkaline Phosphatase 77 Total Protein 6.1 L Albumin 3.5 Triglycerides 201 H Cholesterol 203.63 H LDL Cholesterol Direct 157 H VLDL Cholesterol 40.2 H HDL Cholesterol 36 L TSH 1.74 Urine Color Urine Appearance Urine pH Ur Specific [place] Urine Protein Urine Glucose (UA) Urine Ketones Urine Blood Urine Nitrite Ur Leukocyte Esterase Urine WBC (Auto) Urine RBC (Auto) 10/20/20 10/20/20 10/20/20 15:50 15:50 18:01 Creatine Kinase 101 Troponin I < 0.012 < 0.012 NT-Pro-B Natriuret Pep 273 H 10/20/20 10/21/20 10/21/20 23:47 06:10 11:48 Creatine Kinase Troponin I < 0.012 < 0.012 < 0.012 NT-Pro-B Natriuret Pep Impressions: Chest X-Ray 10/20/20 15:35 IMPRESSION: No acute cardiopulmonary process. Chest/Abdomen CTA 10/20/20 18:53 IMPRESSION: 1. There is for pulmonary embolus. 2. Borderline fatty 9 mm aneurysmal ascending aorta. No dissection. Thickened left ventricle wall. 3. No acute findings. TECHNICAL DOCUMENTATION: Quality ID # 436: Final reports with documentation of one or more dose reduction techniques (e.g., Automated exposure control, adjustment of the mA and/or kV according to patient size, use of iterative reconstruction technique) copyright 2011 [employer]- All Rights Reserved Assessment and Plan - Diagnosis (1) Chest pain due to coronary artery disease Is this a current diagnosis for this admission?: Yes Plan: - Trop negative x 3 - ekg sinus rhythm, LVH - on aspirin, carvedilol, atorvastatin, losartan - PRN nitroglycerin - Cardiology consultation - Echocardiogram pending. Per cardiology either he would need a nuclear stress test on friday or transfer depending on what echo shows (2) Heart failure Qualifiers: Heart failure type: unspecified Is this a current diagnosis for this admission?: Yes Plan: - unknown yet which type. Awaiting echo - started on losartan, lipitor, carvedilol and aspirin - daily weights - strict IO (3) Diabetes mellitus Qualifiers: Diabetes mellitus type: type 2 Diabetes mellitus complication status: without complication Is this a current diagnosis for this admission?: Yes Plan: - will check A1C - On insulin 20 u QHS - SSI - hypoglycemia protocol (4) Hyperlipidemia associated with type 2 diabetes mellitus Is this a current diagnosis for this admission?: Yes Plan: - started on high dose lipitor (5) Hypertension Qualifiers: Hypertension type: essential hypertension Qualified Code(s): I10 - Essential (primary) hypertension Is this a current diagnosis for this admission?: Yes Plan: He appears to be somewhat volume depleted. He received fluid bolus in the emergency department. I am going to hold lisinopril and furosemide. It is somewhat unclear why is he taking furosemide. - Plan Summary Summary: The patient with previous history of coronary artery disease presented with anginal equivalent symptoms. He has no sign of ongoing cardiac ischemia and he is comfortable now. He was placed in observation for cardiac evaluation. He has uncontrolled type 2 diabetes. - Time Time Spent with patient: 25-34 minutes Medications reviewed and adjusted accordingly: Yes Anticipated Discharge Disposition: Home, Self Care Anticipated Discharge Timeframe: TBD
[2020-10-21] MEDS: LOSARTAN POTASSIUM 25 MG TABLET PO SCH (18:00)
[2020-10-21] MEDS: ATORVASTATIN CALCIUM 80 MG TABLET PO SCH (21:37)
[2020-10-21] MEDS: INSULIN GLARGINE,HUM.REC.ANLOG 1,000 UNIT/10 ML VIAL SUBCUT SCH (22:13)
[2020-10-22] MEDS ORDERED: INFLUENZA QUAD (6MOS+) 2020-21 VAC 0.5 ML SYR IM ONE (08:00)
[2020-10-22] MEDS: INSULIN REG, HUMAN 100 UNIT/ML 3 ML VIAL (PYX) SUBCUT SCH ×4 (08:44→21:23)
--- NOTE | 2020-10-22 09:08 | PDOC PROGRESS REPORT ---
Subjective Date:: 10/22/20 Subjective:: MAY SINGH is a 49 year old male with history of hypertension, hyperlipidem ia, type 2 diabetes, coronary artery disease status post LA based on the results of a nuclear stress test done approximately 3 years ago at [facility], heart failure diagnosed by his primary care provider in December 2019 when he was found to have pulmonary edema on chest x-ray, ex-smoker who quit 6 months ago and unknown family history of premature coronary artery disease as he is adopted who is consulted to our service for evaluation of chest pain. After the patient was told the results of his nuclear stress test approximately 3 years ago he was unable to follow-up with cardiology with any further work-up and has not been seen by any advance scout not even after his episode of heart failure in December 2019 due to reasons beyond his control. He had been doing well until yesterday when, while talking to friends in the golf course, he developed a very severe substernal chest pain that he described as a tightness, without radiation, lasting for at least 2 to 3 hours, associated with shortness of breath, diaphoresis, nausea and lightheadedness as well as palpi tations but no syncope or presyncope. Since admission he has remained hemodynamically stable and without recurrence of chest pain. He ruled out for LA with 3 sets of cardiac troponins that are negative. He has no new complaints this morning and feels well. 10/22/2020: The patient had uneventful night and continues to deny ischemic symptoms. His blood pressure is at goal and his telemetry shows normal sinus rhythm without ventricular dysrhythmias. Physical exam on 10/22/2020: GENERAL: Mildly obese. Pleasant and conversational. Oriented x3 with normal mood. Not in acute distress. Well groomed and well developed. HEENT: Normocephalic, atraumatic. Pupils equal. Sclerae anicteric. Oropharynx moist. NECK: No JVD. No carotid bruits. LUNGS: Clear to auscultation bilaterally. Normal respiratory effort without the use of accessory muscles or intercostal retractions. CARDIOVASCULAR: Regular rate and rhythm, normal S1 and S2 without murmurs, rubs, or gallops. PMI not displaced. ABDOMEN: No masses or tenderness to palpation. No bruit. No splenomegaly or hepatomegaly. No abdominal aorta bruit noted. EXTREMITIES: No edema, no cyanosis, no clubbing. +2 pulses femoral and pedal pulses bilaterally. SKIN: No lesions or rashes. MUSCULOSKELETAL: No chest tenderness to palpation. NEUROLOGIC: Nonfocal. No gross sensory or motor deficits bilateral upper or lower extremities. Reason For Visit: CHEST PAIN DUE TO CORONARY ARTERY DISEASE,POORLY Physical Exam Vital Signs: Temp Pulse Resp BP Pulse Ox 98.3 F 68 16 146/80 H 98 10/21/20 20:37 10/22/20 02:00 10/21/20 19:55 10/21/20 19:55 10/21/20 19:55 Intake & Output 10/21/20 10/22/20 10/23/20 06:59 06:59 06:59 Intake Total 1000 820 Output Total 800 2450 Balance 200 -1630 Weight 106.7 kg 107.2 kg Results Laboratory Results: 10/21/20 06:10 10/21/20 06:10 10/21/20 10/21/20 06:10 06:10 Sodium 134.6 L Potassium 4.3 Chloride 105 Carbon Dioxide 24 Anion Gap 6 BUN 21 H Creatinine 0.78 Est GFR ( Amer) > 60 Glucose 259 H Calcium 9.4 Magnesium 2.0 Total Bilirubin 0.5 AST 20 Alkaline Phosphatase 77 Total Protein 6.1 L Albumin 3.5 Triglycerides 201 H Cholesterol 203.63 H LDL Cholesterol Direct 157 H VLDL Cholesterol 40.2 H HDL Cholesterol 36 L TSH 1.74 10/20/20 10/20/20 10/20/20 15:50 15:50 18:01 Creatine Kinase 101 Troponin I < 0.012 < 0.012 NT-Pro-B Natriuret Pep 273 H 10/20/20 10/21/20 10/21/20 23:47 06:10 11:48 Creatine Kinase Troponin I < 0.012 < 0.012 < 0.012 NT-Pro-B Natriuret Pep Impressions: Chest X-Ray 10/20/20 15:35 IMPRESSION: No acute cardiopulmonary process. Chest/Abdomen CTA 10/20/20 18:53 IMPRESSION: 1. There is for pulmonary embolus. 2. Borderline fatty 9 mm aneurysmal ascending aorta. No dissection. Thickened left ventricle wall. 3. No acute findings. TECHNICAL DOCUMENTATION: Quality ID # [id number]: Final reports with documentation of one or more dose reduction techniques (e.g., Automated exposure control, adjustment of the mA and/or kV according to patient size, use of iterative reconstruction technique) copyright 2011 [employer]- All Rights Reserved 10/21/20 06:10 10/21/20 06:10 MCV 88 fl (80-97) 10/21/20 06:10 MCH 29.5 pg (27.0-33.4) 10/21/20 06:10 MCHC 33.7 g/dL (32.0-36.0) 10/21/20 06:10 RDW 12.6 % (11.5-14.0) 10/21/20 06:10 Seg Neutrophils % 58.6 % (42-78) 10/21/20 06:10 Chloride 105 mmol/L (98-107) 10/21/20 06:10 Carbon Dioxide 24 mmol/L (22-30) 10/21/20 06:10 Anion Gap 6 (5-19) 10/21/20 06:10 Est GFR ( Amer) > 60 (>60) 10/21/20 06:10 Glucose 259 mg/dL (75-110) H 10/21/20 06:10 Calcium 9.4 mg/dL (8.4-10.2) 10/21/20 06:10 Magnesium 2.0 mg/dL (1.6-2.3) 10/21/20 06:10 Total Bilirubin 0.5 mg/dL (0.2-1.3) 10/21/20 06:10 AST 20 U/L (17-59) 10/21/20 06:10 Alkaline Phosphatase 77 U/L (38-126) 10/21/20 06:10 Total Protein 6.1 g/dL (6.3-8.2) L 10/21/20 06:10 Albumin 3.5 g/dL (3.5-5.0) 10/21/20 06:10 Triglycerides 201 mg/dL (<150) H 10/21/20 06:10 Cholesterol 203.63 mg/dL (0-200) H 10/21/20 06:10 LDL Cholesterol Direct 157 mg/dL (<100) H 10/21/20 06:10 VLDL Cholesterol 40.2 mg/dL (10-31) H 10/21/20 06:10 HDL Cholesterol 36 mg/dL (>40) L 10/21/20 06:10 TSH 1.74 uIU/mL (0.47-4.68) 10/21/20 06:10 Urine Color YELLOW 10/20/20 17:41 Urine Appearance SLIGHTLY-CLOUDY 10/20/20 17:41 Urine pH 5.0 (5.0-9.0) 10/20/20 17:41 Ur Specific [place] 1.011 10/20/20 17:41 Urine Protein 30 mg/dL (NEGATIVE) H 10/20/20 17:41 Urine Glucose (UA) >=500 mg/dL (NEGATIVE) H 10/20/20 17:41 Urine Ketones NEGATIVE mg/dL (NEGATIVE) 10/20/20 17:41 Urine Blood NEGATIVE (NEGATIVE) 10/20/20 17:41 Urine Nitrite NEGATIVE (NEGATIVE) 10/20/20 17:41 Ur Leukocyte Esterase NEGATIVE (NEGATIVE) 10/20/20 17:41 Urine WBC (Auto) 1 /HPF 10/20/20 17:41 Urine RBC (Auto) 0 /HPF 10/20/20 17:41 10/20/20 10/20/20 10/20/20 15:50 15:50 18:01 Creatine Kinase 101 Troponin I < 0.012 < 0.012 NT-Pro-B Natriuret Pep 273 H 10/20/20 10/21/20 10/21/20 23:47 06:10 11:48 Creatine Kinase Troponin I < 0.012 < 0.012 < 0.012 NT-Pro-B Natriuret Pep Current Medication List Generic Name Dose Route Start Last Admin Trade Name Neena PRN Reason Stop Dose Admin Aspirin 81 mg 10/21/20 10:00 10/21/20 10:21 Aspirin 81 Mg Tablet, Chewable PO 11/20/20 09:59 81 mg DAILY ALEJANDRO Administration Atorvastatin Calcium 80 mg 10/21/20 22:00 10/21/20 21:37 Atorvastatin Calcium 80 Mg Tablet PO 11/20/20 21:59 80 mg QHS ALEJANDRO Administration Carvedilol 6.25 mg 10/20/20 22:00 10/21/20 21:37 Carvedilol 6.25 Mg Tablet PO 11/19/20 21:59 6.25 mg Q12 ALEJANDRO Administration Dextrose 12.5 gm 10/20/20 21:56 Dextrose 50%-Water 25 Gm/50 Ml Disp.Syrin IV 11/19/20 21:55 PRN PRN FOR BG 50-69 IN ALERT PATIENT Protocol Dextrose 25 gm 10/20/20 21:56 Dextrose 50%-Water 25 Gm/50 Ml Disp.Syrin IV 11/19/20 21:55 PRN PRN PER PROTOCOL Protocol Glucagon 1 mg 10/20/20 21:56 Glucagon,Human Recomb 1 Mg Inj IM 11/19/20 21:55 PRN PRN Evaluate for BG < 70 Protocol Glucose 15 gm 10/20/20 21:56 Dextrose 40% Gel 15 Gm Tube PO 11/19/20 21:55 PRN PRN FOR BG 50-69 IN ALERT PATIENT Protocol Glucose 30 gm 10/20/20 21:56 Dextrose 40% Gel 15 Gm Tube PO 11/19/20 21:55 PRN PRN FOR BG < 50 IN ALERT PATIENT Protocol Insulin Glargine 20 unit 10/20/20 22:00 10/21/20 22:13 Insulin Glargine,Hum.Rec.Anlog 1,000 Unit/10 Ml Vial SUBCUT 11/19/20 21:59 20 unit QHS ALEJANDRO Administration Insulin Human Regular 0 - 12 unit 10/20/20 22:00 10/22/20 08:44 Insulin Reg, Human 100 Unit/Ml 3 Ml Vial (Pyx) SUBCUT 11/19/20 21:59 2 unit ACHS ALEJANDRO Administration Protocol Losartan Potassium 25 mg 10/21/20 16:45 10/21/20 18:00 Losartan Potassium 25 Mg Tablet PO 11/20/20 16:44 25 mg DAILY ALEJANDRO Administration Nitroglycerin 1 tab 10/21/20 16:52 Nitroglycerin 0.4 Mg/Tab 25 Tab/Bottle SL 11/20/20 16:51 Q5MP PRN FOR CHEST PAIN Sodium Chloride 2.5 ml 10/20/20 22:00 10/22/20 05:12 Normal Saline Flush 2.5 Ml Disp.Syrin IV 11/19/20 21:59 Not Given Q8 ALEJANDRO Discontinued Medications Generic Name Dose Route Start Last Admin Trade Name Freq PRN Reason Stop Dose Admin Aspirin 324 mg 10/20/20 20:55 10/20/20 21:25 Aspirin 81 Mg Tablet, Chewable PO 10/20/20 20:56 324 mg NOW ONE Administration Sodium Chloride 1,000 mls @ 0 mls/hr 10/20/20 16:21 10/20/20 18:05 Nacl 0.9% 1000 Ml Iv Soln IV 10/20/20 16:22 Infused BOLUS ONE Infusion Wide Open Influenza Virus Vaccine Quadrival 0.5 ml 10/22/20 08:00 Influenza Quad (6mos+) Vac 0.5 Ml Syr IM 10/22/20 08:01 .ONCE ONE Insulin Glargine Confirm 10/20/20 23:26 10/20/20 23:35 Insulin Glargine,Hum.Rec.Anlog 1,000 Unit/10 Ml Vial (Pyx) Administered 10/20/20 23:27 Not Given Dose 1 unit SUBCUT .[facility] ONE Assessment & Plan - Diagnosis (1) Chest pain Qualifiers: Chest pain type: unspecified Qualified Code(s): R07.9 - Chest pain, u nspecified Is this a current diagnosis for this admission?: Yes Plan: 49-year-old male with multiple cardiac risk factors for coronary artery disease and apparent history of LA based on an abnormal nuclear stress test 3 years ago at [facility] who has remained hemodynamically stable and without recurrence of index symptoms. His echocardiogram is still pending and we have not received any records from [facility] yet. Fortunately enough, the patient ruled out for acute LA with 3 sets of n egative cardiac enzymes and his chest pain has not recurred. Recommendations: -Continue with current medical management. -f ejection fraction on echocardiography is normal we will then proceed with nuclear stress test on Friday otherwise he would need to be transferred to [facility] for invasive assessment with left heart catheterization. (2) Heart failure Qualifiers: Heart failure type: unspecified Is this a current diagnosis for this admission?: Yes Plan: t is unknown whether the patient has systolic or diastolic heart failure. His initial diagnosis apparently occurred in December 2019 when he sought medical attention with his primary care provider thinking that he had a COVID-19 infection but was found to apparently have pulmonary edema on chest x-ray. Unfortunately he was unable to get further cardiovascular work-up. He denies heart failure symptoms and appears to be euvolemic on exam. Recommendations: -Echocardiogram today. -Continue with current medical management. -Further recommendations pending results of echocardiography. (3) Hypertension Qualifiers: Hypertension type: essential hypertension Qualified Code(s): I10 - Essential (primary) hypertension Is this a current diagnosis for this admission?: Yes Plan: His blood pressure is at goal. Will defer further management to hospitalist team. (4) Hyperlipidemia associated with type 2 diabetes mellitus Is this a current diagnosis for this admission?: Yes Plan: His most recent LDL is above goal at 157 reason why he was begun on Lipitor 80 mg daily yesterday in order to achieve goal LDL of 70 or below. Recommendations: -Continue with current medical management. -Check LFTs in 6 weeks. (5) Diabetes mellitus Qualifiers: Diabetes mellitus type: type 2 Diabetes mellitus complication status: without complication Is this a current diagnosis for this admission?: Yes Plan: I will defer further management to hospitalist team.
[2020-10-22] MEDS: LOSARTAN POTASSIUM 25 MG TABLET PO SCH (11:21)
[2020-10-22] MEDS: ASPIRIN 81 MG TABLET, CHEWABLE PO SCH (11:21)
[2020-10-22] MEDS: CARVEDILOL 6.25 MG TABLET PO SCH ×2 (11:21→21:23)
--- NOTE | 2020-10-22 13:21 | XCELERA REPORT ---
[address] [address] Transthoracic Echocardiogram Report Name: MAY SINGH Age: 49 yrs Gender: Male : 1970 Patient Status: Inpatient Patient Location: [address] [place] [address] Study Date: 10/22/2020 10:41 AM Height: 69 in Weight: 235 lb BSA: 2.2 m2 Procedure: A complete two-dimensional transthoracic echocardiogram was performed (2D, M-mode, spectral and color flow Doppler). The study was technically adequate with some images being suboptimal in quality. Reason For Study: chest pain Previous Evaluation: No previous studies were available. Ordering Physician: ARI PAK Performed By: Vikash Ponce Interpretation Summary The left ventricle is grossly normal size. There is mild concentric left ventricular hypertrophy. Left ventricular systolic function is normal. The Ejection Fraction estimate is 60-65%. Doppler measurements suggest impaired left ventricular relaxation, which is associated with grade I/IV or mild diastolic dysfunction. No regional wall motion abnormalities noted. Trace MR, mild AI, trace TR, trace PI. No prior studies for comparison. MMode/2D Measurements & Calculations RVDd: 3.4 cm LVIDd: 5.0 cm FS: 36.0 % Ao root diam: 3.5 cm IVSd: 1.4 cm LVIDs: 3.2 cm EDV(Teich): Ao root area: LVPWd: 1.4 cm 118.3 ml 9.9 cm2 ESV(Teich): 40.9 mlLA dimension: 3.8 cm EF(Teich): 65.4 % LVLd ap4: 9.7 cm SV(MOD-sp4): EDV(MOD-sp4): 60.0 ml 96.0 ml LVLs ap4: 8.2 cm ESV(MOD-sp4): 36.0 ml EF(MOD-sp4): 62.5 % Doppler Measurements & Calculations MV E max amanda: MV P1/2t max amanda: Ao V2 max: AI max amanda: 67.2 cm/sec 80.0 cm/sec 120.3 cm/sec 453.7 cm/sec MV A max amanda: MV P1/2t: 67.0 msec Ao max PG: AI max P.3 mmHg 83.3 cm/sec MVA(P1/2t): 3.3 cm2 5.8 mmHg AI dec slope: MV E/A: 0.81 MV dec slope: 165.3 cm/sec2 349.6 cm/sec2 AI P1/2t: 804.0 msec MV dec time: 0.21 sec LV V1 max PG: PA V2 max: TR max amanda: AV P1/2t-pr_phl: 4.2 mmHg 85.6 cm/sec 225.0 cm/sec 804.0 msec LV V1 max: PA max P.9 mmHg TR max P.0 cm/sec 20.2 mmHg MV P1/2t-pr_phl: 67.0 msec Left Ventricle The left ventricle is grossly normal size. There is mild concentric left ventricular hypertrophy. Left ventricular systolic function is normal. The Ejection Fraction estimate is 60-65%. Doppler measurements suggest impaired left ventricular relaxation, which is associated with grade I/IV or mild diastolic dysfunction. No regional wall motion abnormalities noted. Right Ventricle The right ventricle is grossly normal size. The right ventricular systolic function is normal. Atria The right atrium is normal. The left atrial size is normal. The interatrial septum is difficult to see, but appears to be grossly normal. Mitral Valve The mitral valve leaflets are sclerotic, but show no functional abnormalities. There is no evidence of mitral valve prolapse. There is no vegetation seen on the mitral valve. There is no mitral valve stenosis. There is a trace amount of mitral regurgitation. Aortic Valve The aortic valve is grossly normal. The aortic valve is not well visualized secondary to technical limitations. There is no aortic valvular vegetation. There is no aortic valve stenosis. There is a mild amount of aortic regurgitation. Tricuspid Valve The tricuspid valve is not well visualized, but is grossly normal. There is no tricuspid valve prolapse. There is no tricuspid valve vegetation. There is no tricuspid stenosis. There is a trace or physiologic amount of tricuspid regurgitation. Pulmonic Valve The pulmonic valve is not well visualized. There is no vegetation on the pulmonic valve. There is no pulmonic valvular stenosis. There is a trace or physiologic amount of pulmonic regurgitation. Great Vessels The aortic root is normal size. The inferior vena cava appeared small and collapsed with respiration (RAP 0-5 mmHg). Effusions There is no pericardial effusion. There is no pleural effusion. : ARI PAK Antonio
--- NOTE | 2020-10-22 16:25 | PDOC PROGRESS REPORT ---
Subjective Date:: 10/22/20 Subjective:: MAY SINGH is a 49 year old male Patient has history of coronary artery disease. He had nuclear medicine cardiac stress test about 2 years ago. 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 Cardiac catheterization was not recommended at that time. He was [place] [email or web address] [place] with his friends this afternoon. He was mostly riding the golf cart. He started feeling poorly. He started sweating, became lightheaded, nauseated. He developed chest pressure radiating towards left shoulder. He felt he is going to pass out. The symptoms lasted for almost an hour. Eventually came to the emergency department. His symptoms resolved. The chest pressure was quite intense. He never experienced anything similar. He had some shortness of breath at the same time as well. Eventually the symptoms resolved by itself. Ever since then he is feeling fine. When I arrived to see him he appeared to be comfortable without any distress. D1 hospital stay Patient was seen and examined at bedside. He denied any chest pain, SOB, palpitations. He admitted to the nurse that he was not able to buy his medication because he could not afford it. I spoke to Dr. Veloz who said depending on what the echo shows he would likely need nuclear stress or be vargas sferred for a cath. I have changed the echo order to stat. Reason For Visit: CHEST PAIN DUE TO CORONARY ARTERY DISEASE,POORLY Physical Exam Vital Signs: Temp Pulse Resp BP Pulse Ox 98.1 F 74 18 138/78 H 96 10/22/20 12:05 10/22/20 12:05 10/22/20 12:05 10/22/20 12:05 10/22/20 12:05 Intake & Output 10/21/20 10/22/20 10/23/20 06:59 06:59 06:59 Intake Total 1000 820 650 Output Total 800 2450 200 Balance 200 -1630 450 Weight 106.7 kg 107.2 kg 106.9 kg General appearance: PRESENT: no acute distress, cooperative Head exam: PRESENT: atraumatic, normocephalic Eye exam: PRESENT: EOMI, PERRLA Mouth exam: PRESENT: moist Neck exam: PRESENT: full ROM Respiratory exam: PRESENT: clear to auscultation luis, symmetrical, unlabored Cardiovascular exam: PRESENT: RRR, +S1, +S2 GI/Abdominal exam: PRESENT: normal bowel sounds, soft. ABSENT: rebound, tenderness Extremities exam: PRESENT: full ROM Musculoskeletal exam: PRESENT: full ROM Neurological exam: PRESENT: alert, awake, oriented to person, oriented to place, oriented to time, oriented to situation Psychiatric exam: PRESENT: normal mood Skin exam: PRESENT: normal color Results Laboratory Results: 10/21/20 06:10 10/21/20 06:10 10/20/20 10/20/20 10/20/20 15:50 15:50 18:01 Creatine Kinase 101 Troponin I < 0.012 < 0.012 NT-Pro-B Natriuret Pep 273 H 10/20/20 10/21/20 10/21/20 23:47 06:10 11:48 Creatine Kinase Troponin I < 0.012 < 0.012 < 0.012 NT-Pro-B Natriuret Pep Impressions: Chest X-Ray 10/20/20 15:35 IMPRESSION: No acute cardiopulmonary process. Chest/Abdomen CTA 10/20/20 18:53 IMPRESSION: 1. There is for pulmonary embolus. 2. Borderline fatty 9 mm aneurysmal ascending aorta. No dissection. Thickened left ventricle wall. 3. No acute findings. TECHNICAL DOCUMENTATION: Quality ID # 436: Final reports with documentation of one or more dose reduction techniques (e.g., Automated exposure control, adjustment of the mA and/or kV according to patient size, use of iterative reconstruction technique) copyright 2011 [employer]- All Rights Reserved Assessment and Plan - Diagnosis (1) Chest pain due to coronary artery disease Is this a current diagnosis for this admission?: Yes Plan: - Trop negative x 3 - ekg sinus rhythm, LVH - on aspirin, carvedilol, atorvastatin, losartan - PRN nitroglycerin - Cardiology consultation - Echocardiogram left ventricle is grossly normal in size mild concentric left ventricular hypertrophy. Normal systolic function. EF 60-65%. Grade 1 out of 4 mild diastolic dysfunction. - plan for nuclear stress test tomorrow - NPO at midnight (2) Heart failure Qualifiers: Heart failure type: unspecified Is this a current diagnosis for this admission?: Yes Plan: - mild diastolic heart failure - started on losartan, lipitor, carvedilol and aspirin - daily weights - strict IO (3) Diabetes mellitus Qualifiers: Diabetes mellitus type: type 2 Diabetes mellitus complication status: without complication Is this a current diagnosis for this admission?: Yes Plan: - will check A1C - On insulin 20 u QHS - SSI - hypoglycemia protocol (4) Hyperlipidemia associated with type 2 diabetes mellitus Is this a current diagnosis for this admission?: Yes Plan: - started on high dose lipitor (5) Hypertension Qualifiers: Hypertension type: essential hypertension Qualified Code(s): I10 - Essential (primary) hypertension Is this a current diagnosis for this admission?: Yes Plan: He appears to be somewhat volume depleted. He received fluid bolus in the em ergency department. I am going to hold lisinopril and furosemide. It is somewhat unclear why is he taking furosemide. - Plan Summary Summary: . - Time Time Spent with patient: 15-24 minutes Medications reviewed and adjusted accordingly: Yes Anticipated Discharge Disposition: Home, Self Care Anticipated Discharge Timeframe: tbd
[2020-10-22] MEDS: ATORVASTATIN CALCIUM 80 MG TABLET PO SCH (21:23)
[2020-10-22] MEDS: INSULIN GLARGINE,HUM.REC.ANLOG 1,000 UNIT/10 ML VIAL SUBCUT SCH (21:24)
--- NOTE | 2020-10-23 00:22 | CDI QUERY ---
CDI Query CDI Review: We are seeking further clarification of documentation to reflect the severity of illness of your patient. Per Progress Notes: (2) Heart failure Qualifiers: Heart failure type: unspecified Is this a current diagnosis for this admission?: Yes Plan: - mild diastolic heart failure - started on losartan, lipitor, carvedilol and aspirin - daily weights - strict IO Based on your medical judgement, can you further clarify in the Progress Notes and carry through the Discharge Summary: Severity of heart failure Acute, exacerbation, or decompensation Chronic Acute on chronic Other (please specify) None of the above / Not applicable Thank you for your consideration. ANGEL Amador RN Clinical Board Mixer Tender Physician Advisor [email or web address]
--- NOTE | 2020-10-23 09:15 | PDOC PROGRESS REPORT ---
Subjective Date:: 10/23/20 Subjective:: Patient was seen and examined in the stress lab. I reviewed Dr. Veloz's not e. It appears that patient had congestive heart failure diagnosed in December 2019. Echocardiogram performed here demonstrates preserved left ventricular ejection fraction and no significant valve lesion. In the stress that patient does not endorse any chest pain or dyspnea. His cardiac biomarkers are negative. Reason For Visit: CHEST PAIN DUE TO CORONARY ARTERY DISEASE,POORLY Physical Exam Vital Signs: Temp Pulse Resp BP Pulse Ox 97.9 F 73 18 137/88 H 98 10/23/20 07:56 10/23/20 07:56 10/23/20 07:56 10/23/20 07:56 10/23/20 07:56 Intake & Output 10/22/20 10/23/20 10/24/20 06:59 06:59 06:59 Intake Total 820 650 Output Total 2450 200 Balance -1630 450 Weight 107.2 kg 106.3 kg General appearance: PRESENT: no acute distress, cooperative, well-developed, well-nourished Head exam: PRESENT: atraumatic, normocephalic Eye exam: PRESENT: conjunctiva pink, EOMI Ear exam: PRESENT: normal external ear exam Mouth exam: PRESENT: moist Neck exam: PRESENT: full ROM Respiratory exam: PRESENT: clear to auscultation luis, symmetrical, unlabored Cardiovascular exam: PRESENT: RRR, +S1, +S2 Pulses: PRESENT: normal radial pulses GI/Abdominal exam: PRESENT: soft Rectal exam: PRESENT: deferred Neurological exam: PRESENT: alert, awake, oriented to person, oriented to place, oriented to time, oriented to situation Psychiatric exam: PRESENT: appropriate affect Skin exam: PRESENT: dry, intact, normal color Results Laboratory Results: 10/21/20 06:10 10/21/20 06:10 10/20/20 10/20/20 10/20/20 15:50 15:50 18:01 Creatine Kinase 101 Troponin I < 0.012 < 0.012 NT-Pro-B Natriuret Pep 273 H 10/20/20 10/21/20 10/21/20 23:47 06:10 11:48 Creatine Kinase Troponin I < 0.012 < 0.012 < 0.012 NT-Pro-B Natriuret Pep EKG Comments: Transthoracic echocardiogram 10/22/2020 Left ventricular ejection fraction 60 to 65% Trace MR, mild AI, trace TR and trace PI Mild diastolic dysfunction No pericardial effusion Twelve-lead EKG 10/20/2020. Independently viewed by me. Sinus tachycardia 101 bpm, inferior Q waves. Mild diffuse ST elevation multiple leads including some RI depression which is mild. CTA 10/20/2020 No acute findings borderline aneurysmal ascending aorta no dissection no pulmonary embolus. Cardiac troponin negative x5 Impressions: Chest X-Ray 10/20/20 15:35 IMPRESSION: No acute cardiopulmonary process. Chest/Abdomen CTA 10/20/20 18:53 IMPRESSION: 1. There is for pulmonary embolus. 2. Borderline fatty 9 mm aneurysmal ascending aorta. No dissection. Thickened left ventricle wall. 3. No acute findings. TECHNICAL DOCUMENTATION: Quality ID # [id number]: Final reports with documentation of one or more dose reduction techniques (e.g., Automated exposure control, adjustment of the mA and/or kV according to patient size, use of iterative reconstruction technique) copyright 2011 [employer]- All Rights Reserved Assessment & Plan - Diagnosis (1) Chest pain Qualifiers: Chest pain type: unspecified Qualified Code(s): R07.9 - Chest pain, unspecified Is this a current diagnosis for this admission?: Yes Plan: Chest pain Has resolved Cardiac biomarkers are negative Patient has completed pharmacological nuclear stress test We will interpreted images (2) Diabetes mellitus Qualifiers: Diabetes mellitus type: type 2 Diabetes mellitus complication status: without complication Is this a current diagnosis for this admission?: Yes Plan: Chest pain Has resolved Cardiac biomarkers are negative Patient has completed pharmacological nuclear stress test We will interpreted images (3) Heart failure Qualifiers: Heart failure type: diastolic Heart failure chronicity: chronic Qualified Code(s): I50.32 - Chronic diastolic (congestive) heart failure Is this a current diagnosis for this admission?: Yes Plan: Probable diastolic heart failure Euvolemic. Left ventricular ejection fraction is preserved with no significant valve lesion (4) Hypertension Qualifiers: Hypertension type: essential hypertension Qualified Code(s): I10 - Essential (primary) hypertension Is this a current diagnosis for this admission?: Yes Plan: Systemic hypertension Monitor blood pressure closely No added salt in the diet Losartan 25 mg daily Continue carvedilol 6.25 mg twice daily (5) Dyslipidemia Is this a current diagnosis for this admission?: Yes Plan: Continue atorvastatin 80 mg daily
[2020-10-23] MEDS: INSULIN REG, HUMAN 100 UNIT/ML 3 ML VIAL (PYX) SUBCUT SCH ×4 (10:25→21:57)
[2020-10-23] MEDS: CARVEDILOL 6.25 MG TABLET PO SCH (11:13)
[2020-10-23] MEDS: LOSARTAN POTASSIUM 25 MG TABLET PO SCH (11:13)
[2020-10-23] MEDS: ASPIRIN 81 MG TABLET, CHEWABLE PO SCH (11:13)
[2020-10-23 12:10] VITALS: BP 124/79
--- NOTE | 2020-10-23 12:19 | PDOC TRANSFER SUMMARY ---
General Admission Date/PCP: 10/20/20 21:17 - Transfer Diagnosis (1) Chest pain due to coronary artery disease Is this a current diagnosis for this admission?: Yes Diagnosis Summary: 49-year-old male with multiple cardiac risk factors for coronary artery disease and apparent history of OK based on an abnormal nuclear stress test 3 years ago at [facility] who has remained hemodynamically stable and without recurrence of index symptoms. His echocardiogram is still pending and we have not received any records from [facility] yet. Fortunately enough, the patient ruled out for acute OK with 3 sets of negative cardiac enzymes and his chest pain has not recurred. Nuclear stress test showed reversible ischemia hence patient was advised he would need to be transferred for Coronary Angiogram Has been on ARB, carvedilol, aspirin. (2) Heart failure Is this a current diagnosis for this admission?: Yes Diagnosis Summary: t is unknown whether the patient has systolic or diastolic heart failure. His initial diagnosis apparently occurred in December 2019 when he sought medical attention with his primary care provider thinking that he had a COVID-19 infection but was found to apparently have pulmonary edema on chest x-ray. Unfortunately he was unable to get further cardiovascular work-up. He denies heart failure symptoms and appears to be euvolemic on exam. Echo showed EF 60 to 65%. Mild concentric LVH, normal LV systolic function. Doppler measurement suggests impaired left ventricular relaxation grade 1 out of 4 diastolic dysfunction. No regional wall motion abnormalities noted. (3) Diabetes mellitus Is this a current diagnosis for this admission?: Yes Diagnosis Summary: -Longstanding A1c is 11.7. - on 20u Lantus in patient and sliding scale (4) Hyperlipidemia associated with type 2 diabetes mellitus Is this a current diagnosis for this admission?: Yes Diagnosis Summary: - started on lipitor (5) Hypertension Is this a current diagnosis for this admission?: Yes Diagnosis Summary: - on losartan, carvedilol - Transfer Medications Home Medications: Lisinopril [Prinivil 10 mg Tablet] 10 mg PO DAILY 10/20/20 Aspirin [Ecotrin 81 mg EC Tablet] 81 mg PO DAILY 10/21/20 Carvedilol [Coreg 6.25 mg Tablet] 6.25 mg PO BID 10/21/20 Furosemide [Lasix 40 mg Tablet] 40 mg PO QAM 10/21/20 Transfer Medications: Current Medications Aspirin (Aspirin 81 Mg Tablet, Chewable) 81 mg PO DAILY [facility] Stop: 11/20/20 09:59 Last Admin: 10/23/20 11:13 Dose: 81 mg Documented by: Atorvastatin Calcium (Atorvastatin Calcium 80 Mg Tablet) 80 mg PO QHS [facility] Stop: 11/20/20 21:59 Last Admin: 10/22/20 21:23 Dose: 80 mg Documented by: Carvedilol (Carvedilol 6.25 Mg Tablet) 6.25 mg PO Q12 [facility] Stop: 11/19/20 21:59 Last Admin: 10/23/20 11:13 Dose: 6.25 mg Documented by: Dextrose (Dextrose 50%-Water 25 Gm/50 Ml Disp.Syrin) 12.5 gm IV PRN PRN; Protocol PRN Reason: FOR BG 50-69 IN ALERT PATIENT Stop: 11/19/20 21:55 Dextrose (Dextrose 50%-Water 25 Gm/50 Ml Disp.Syrin) 25 gm IV PRN PRN; Protocol PRN Reason: PER PROTOCOL Stop: 11/19/20 21:55 Glucagon (Glucagon,Human Recomb 1 Mg Inj) 1 mg IM PRN PRN; Protocol PRN Reason: Evaluate for BG < 70 Stop: 11/19/20 21:55 Glucose (Dextrose 40% Gel 15 Gm Tube) 15 gm PO PRN PRN; Protocol PRN Reason: FOR BG 50-69 IN ALERT PATIENT Stop: 11/19/20 21:55 Glucose (Dextrose 40% Gel 15 Gm Tube) 30 gm PO PRN PRN; Protocol PRN Reason: FOR BG < 50 IN ALERT PATIENT Stop: 11/19/20 21:55 Insulin Glargine (Insulin Glargine,Hum.Rec.Anlog 1,000 Unit/10 Ml Vial) 20 unit SUBCUT [facility] Stop: 11/19/20 21:59 Last Admin: 10/22/20 21:24 Dose: 20 unit Documented by: Insulin Human Regular (Insulin Reg, Human 100 Unit/Ml 3 Ml Vial (Pyx)) 0 - 12 unit SUBCUT [facility]; Protocol Stop: 11/19/20 21:59 Last Admin: 10/23/20 11:42 Dose: 4 unit Documented by: Losartan Potassium (Losartan Potassium 25 Mg Tablet) 25 mg PO DAILY [facility] Stop: 11/20/20 16:44 Last Admin: 12/14/20 11:13 Dose: 25 mg Documented by: Nitroglycerin (Nitroglycerin 0.4 Mg/Tab 25 Tab/Bottle) 1 tab SL Q5MP PRN PRN Reason: FOR CHEST PAIN Stop: 11/20/20 16:51 Sodium Chloride (Normal Saline Flush 2.5 Ml Disp.Syrin) 2.5 ml IV Q8 [facility]LE[facility]ANDRO Stop: 11/19/20 21:59 Last Admin: 10/23/20 05:34 Dose: Not Given Documented by: - Allergies Allergies/Adverse Reactions: No Known Allergies Allergy (Verified 10/20/20 16:20) Hospital Course Hospital Course: MAY SINGH is a 49 year old male with history of hypertension, hyperlipidemia, type 2 diabetes, coronary artery disease status post OK based on the results of a nuclear stress test done approximately 3 years ago at [facility], heart failure diagnosed by his primary care provider in December 2019 when he was found to have pulmonary edema on chest x- ray, ex-smoker who quit 6 months ago and unknown family history of premature cor onary artery disease as he is adopted who is consulted to our service for evaluation of chest pain. 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 He had been doing well until yesterday when, [place], he developed a very severe substernal chest pain that he described as a tightness, without radiation, lasting for at least 2 to 3 hours, associated with shortness of breath, diaphoresis, nausea and lightheadedness as well as palpitations but no syncope or presyncope. Since admission he has remained hemodynamically stable and without recurrence of chest pain. He ruled out for OK with 3 sets of cardiac troponins that are negative. He has no new complaints this morning and feels well. There has been no recurrence of symptoms since he was admitted. Nuclear stress test done today showed reversible ischemia hence patient was advised that he would need to be transferred to [facility]. Physical Exam Vital Signs: Temp Pulse Resp BP Pulse Ox 97.9 F 73 18 137/88 H 98 10/23/20 10:00 10/23/20 07:56 10/23/20 07:56 10/23/20 07:56 10/23/20 07:56 Intake & Output 10/22/20 10/23/20 10/24/20 06:59 06:59 06:59 Intake Total 820 650 Output Total 2450 200 Balance -1630 450 Weight 107.2 kg 106.3 kg General appearance: PRESENT: no acute distress, cooperative Head exam: PRESENT: atraumatic, normocephalic Eye exam: PRESENT: EOMI, PERRLA Mouth exam: PRESENT: moist Neck exam: PRESENT: full ROM Respiratory exam: PRESENT: clear to auscultation luis, symmetrical, unlabored Cardiovascular exam: PRESENT: RRR, +S1, +S2 Pulses: PRESENT: +2 pedal pulses bilateral GI/Abdominal exam: PRESENT: normal bowel sounds, soft. ABSENT: rebound, tenderness Extremities exam: PRESENT: full ROM Musculoskeletal exam: PRESENT: full ROM Neurological exam: PRESENT: alert, awake, oriented to person, oriented to place, oriented to time, oriented to situation Psychiatric exam: PRESENT: normal mood Skin exam: PRESENT: normal color Results Laboratory Results: 10/21/20 06:10 10/21/20 06:10 10/20/20 10/20/20 10/20/20 15:50 15:50 18:01 Creatine Kinase 101 Troponin I < 0.012 < 0.012 NT-Pro-B Natriuret Pep 273 H 10/20/20 10/21/20 10/21/20 23:47 06:10 11:48 Creatine Kinase Troponin I < 0.012 < 0.012 < 0.012 NT-Pro-B Natriuret Pep Impressions: Chest X-Ray 10/20/20 15:35 IMPRESSION: No acute cardiopulmonary process. Chest/Abdomen CTA 10/20/20 18:53 IMPRESSION: 1. There is for pulmonary embolus. 2. Borderline fatty 9 mm aneurysmal ascending aorta. No dissection. Thickened left ventricle wall. 3. No acute findings. TECHNICAL DOCUMENTATION: Quality ID # [id number]: Final reports with documentation of one or more dose reduction techniques (e.g., Automated exposure control, adjustment of the mA and/or kV according to patient size, use of iterative reconstruction technique) copyright 2011 [employer]- All Rights Reserved Plan Time Spent: Greater than 30 Minutes
--- NOTE | 2020-10-23 12:56 | DRAGON STRESS TEST REPORT ---
Pharmacological nuclear stress test Date: 10/23/2020 Referring physician: Laura Vaughan MD Performing physician: López Trevizo MD Indication: Chest pain Clinical history 49-year-old male with history of systemic hypertension and dyslipidemia as well as diabetes mellitus who presented with chest pain. His cardiac biomarkers were negative. Procedure The patient presented to the stress lab. Initially rest images were obtained according to standard protocol after the injection of of 14.4 millicurie technetium 99m sestamibi. Subsequently the patient underwent pharmacological stress utilizing 0.4 mg of regadenoson intravenously. The patient's EKG and vital signs were monitored throughout the procedure. Subsequently patient was injected with 44.4 millicuries of technetium 99m sestamibi. After a period of rest, stress images were obtained according to standard protocol. EKG showed sinus rhythm with first-degree AV block at 75 beats per minute. The patient's stress EKG did not show any evidence for myocardial ischemia. There were no arrhythmias observed. Raw as well as processed rest and stress images were reviewed. There was mild to moderate gut uptake which did not interfere with the study. Comparison of the rest and stress images shows a small size, moderately intense, partially reversible defect in the LV apex. There is normal contractility post-rest. The calculated ejection fraction is 41%. The TID ratio is 1.14. Conclusion The stress EKG is negative for myocardial ischemia Myocardial perfusion imaging study is abnormal as described above with a suggestion of ischemia in the LAD distribution. There is normal contractility post-stress. The gated left ventricular ejection fraction is 41 %. Based on abnormal stress test and also multiple risk factors we have arranged for transfer to [facility] for cardiac catheterization. [facility]
[2020-10-23] MEDS ORDERED: REGADENOSON INJ 0.4 MG/5 ML DISP.SYRIN IV ONE (17:55)
[2020-10-23] MEDS: INSULIN GLARGINE,HUM.REC.ANLOG 1,000 UNIT/10 ML VIAL SUBCUT SCH (21:58)
== END 2020-10-23 21:45 | disposition short-term general hospital (02) ==
LOC: ER 15:18 → EH 21:17 → OBSVTOIN 21:17 → INTOOBSV 21:17 → 5 23:00
PROVIDERS: ADMIT Internal Medicine; ATTEND Internal Medicine
DX: I25.119 Atherosclerotic heart disease of native coronary artery with unspecified angina pectoris (principal); I11.0 Hypertensive heart disease with heart failure; I50.30 Unspecified diastolic (congestive) heart failure; E78.5 Hyperlipidemia, unspecified; I25.2 Old myocardial infarction; E11.65 Type 2 diabetes mellitus with hyperglycemia; I95.9 Hypotension, unspecified; E66.9 Obesity, unspecified; R79.89 Other specified abnormal findings of blood chemistry; Z20.828 Contact with and (suspected) exposure to other viral communicable diseases; Z87.891 Personal history of nicotine dependence; Z79.899 Other long term (current) drug therapy; Z79.82 Long term (current) use of aspirin
CPT/HCPCS: 93005 ×2; 99285; 96360; 36415 ×2; 82962 ×4; 80307; 82550; 83735 ×2; 84443; 85025 ×2; 85610; 0241U ×4; 80053 ×2; 81001; 84484 ×2; 83036; 85379; 80061; 83880; 93306; 93017; 71045; 78452; 71275; 93010 ×2; A9500; J2785; J1815 ×8; J3490 ×3; J7030; Q9969; C9803